=== PATIENT | female | born 1960 | race African-American/Black ===

== ENCOUNTER 2017-10-05 00:44 | Emergency (ER) | payer OTHER ==
[2017-10-05 02:00] VITALS: BMI 29.8
--- NOTE | 2017-10-05 02:02 | PDOC ---
History of Present Illness <Scarlett Espinosa - Last Filed: 10/05/17 03:03> - General History Source: Patient Exam Limitations: No Limitations - History of Present Illness Initial Comments: 10/05/17 05:24 Patient is a 57 year old female with a significant past medical history of Diabetes (uncontrollable), who presents to the ED with complaints of right upper quadrant pain that began 1 week ago. Patient reports having flu 2 weeks ago and states she is currently getting over it. She reports experiencing achy chest pain secondary to cough as well as intermittent shortness of breath with deep inspirations. She reports experiencing multiple episodes of vomiting and diarrhea for the last week, stating both the vomit and the diarrhea look like green bile, which prompted her to come into the ED. She reports being unable to eat solid food and drink liquids due to vomiting, stating she can only drink soup very slowly as to not trigger another vomiting episode. Denies contact with sick individuals, out of state travel. Denies dysuria, hematuria, constipation. Denies any other symptoms. Allergies: None Social history: Lives with . No smoking. No alcohol. No illicit drugs. Surgical history: Toe Amputation. . PMD: Dr. Jean Carlos giraldo <Cedric Garcia - Last Filed: 10/05/17 05:24> <Alisha Machuca - Last Filed: 10/05/17 08:26> - General Chief Complaint: Vomiting/Diarrhea Stated Complaint: VOMITING,DIARRHEA Time Seen by Provider: 10/05/17 02:02 Past History - Past Medical History COPD: No Diabetes: Yes (1) HTN: Yes - Suicide/Smoking/Psychosocial Hx Smoking History: Unknown if ever smoked Information on smoking cessation initiated: No <Scarlett Espinosa - Last Filed: 10/05/17 03:03> <Cedric Garcia - Last Filed: 10/05/17 05:24> <Alisha Machuca - Last Filed: 10/05/17 08:26> - Past Medical History Allergies/Adverse Reactions: Allergies Allergy/AdvReac Type Severity Reaction Status Date / Time No Known Allergies Allergy Verified 10/05/17 01:57 Home Medications: Ambulatory Orders Insulin (Levemir) [Levemir Vial] 24 unit SQ DAILY 10/05/17 Insulin Lispro [Humalog] unit SQ ASDIR 10/05/17 Review of Systems - Review of Systems Able to Perform ROS?: Yes Comments:: 10/05/17 05:24 GENERAL/CONSTITUTIONAL: No fever or chills. No weakness. HEAD, EYES, EARS, NOSE AND THROAT: No change in vision. No ear pain or discharge. No sore throat. GASTROINTESTINAL: +Nausea. +Vomiting. +Diarrhea. No constipation. GENITOURINARY: No dysuria, frequency, or change in urination. CARDIOVASCULAR: No chest pain or shortness of breath. RESPIRATORY: +Sob with deep inhalation. No cough, wheezing, or hemoptysis. MUSCULOSKELETAL: No joint or muscle swelling or pain. No neck or back pain. SKIN: No rash NEUROLOGIC: No headache, vertigo, loss of consciousness, or change in strength/ sensation. ENDOCRINE: No increased thirst. No abnormal weight change. HEMATOLOGIC/LYMPHATIC: No anemia, easy bleeding, or history of blood clots. ALLERGIC/IMMUNOLOGIC: No hives or skin allergy. All Other Systems: Reviewed and Negative <Cedric Garcia - Last Filed: 10/05/17 05:24> *Physical Exam - Vital Signs Last Vital Signs Temp Pulse Resp BP Pulse Ox 99.2 F 92 H 20 124/104 98 10/05/17 01:59 10/05/17 01:59 10/05/17 01:59 10/05/17 01:59 10/05/17 01:59 <Scarlett Espinosa - Last Filed: 10/05/17 03:03> - Vital Signs Last Vital Signs Temp Pulse Resp BP Pulse Ox 99.2 F 92 H 20 124/104 98 10/05/17 01:59 10/05/17 01:59 10/05/17 01:59 10/05/17 01:59 10/05/17 01:59 - Physical Exam Comments: 10/05/17 05:25 GENERAL: Awake, alert, and fully oriented, in no acute distress HEAD: No signs of trauma EYES: PERRLA, EOMI, sclera anicteric, conjunctiva clear ENT: +Nasal congestion. Auricles normal inspection, hearing grossly normal, nares patent, oropharynx clear without exudates. Moist mucosa NECK: Normal ROM, supple, no lymphadenopathy, JVD, or masses LUNGS: Breath sounds equal, clear to auscultation bilaterally. No wheezes, and no crackles HEART: +Tachycardic at 100. Regular rhythm, normal S1 and S2, no murmurs, rubs or gallops ABDOMEN: +Tenderness with voluntary guarding in RUQ Soft, normoactive bowel sounds. No rebound. No masses MUSCULOSKELETAL: +cva tenderness on the right side. EXTREMITIES: Normal range of motion, no edema. No clubbing or cyanosis. No cords, erythema, or tenderness NEUROLOGICAL: Cranial nerves II through XII grossly intact. Normal speech, normal gait SKIN: No skin changes, Warm, Dry, normal turgor, no rashes or lesions noted. <Cedric Garcia - Last Filed: 10/05/17 05:24> - Vital Signs Last Vital Signs Temp Pulse Resp BP Pulse Ox 97.9 F 76 16 114/79 97 10/05/17 06:56 10/05/17 06:56 10/05/17 06:56 10/05/17 06:56 10/05/17 06:56 <Alisha Machuca - Last Filed: 10/05/17 08:26> ED Treatment Course - LABORATORY CBC & Chemistry Diagram: 10/05/17 03:00 10/05/17 03:00 - ADDITIONAL ORDERS Additional order review: Laboratory Results 10/05/17 10/05/17 10/05/17 03:00 03:00 03:00 PT with INR 11.40 INR 1.01 PTT (Actin FS) 37.9 H Sodium 138 Potassium 3.4 L Chloride 96 L Carbon Dioxide 31 Anion Gap 11 BUN 22 H Creatinine 1.0 Creat Clearance w eGFR 57.15 Random Glucose 361 H* Calcium 10.0 Total Bilirubin 0.4 AST 9 L ALT 16 Alkaline Phosphatase 86 Creatine Kinase 80 Troponin I < 0.02 Total Protein 7.7 Albumin 3.5 Lipase 117 Beta HCG, Quant 2.7 Blood Type O POSITIVE Antibody Screen Negative 10/05/17 03:00 RBC 5.34 H MCV 82.3 MCHC 32.6 RDW 14.7 MPV 8.8 Neutrophils % 69.6 Lymphocytes % 22.0 Monocytes % 6.4 Eosinophils % 1.5 Basophils % 0.5 - Medications Given in the ED: ED Medications Discontinued Medications Generic Name Dose Route Start Last Admin Trade Name Freq PRN Reason Stop Dose Admin Acetaminophen 1,000 mg 10/05/17 03:57 10/05/17 04:46 Tylenol - PO 10/05/17 03:58 1,000 mg ONCE ONE Administration Al Hydroxide/Mg Hydroxide 30 ml 10/05/17 03:16 10/05/17 04:46 Mylanta Oral Suspension - PO 10/05/17 03:17 Not Given ONCE ONE Sodium Chloride 1,000 mls @ 1,000 mls/hr 10/05/17 03:15 10/05/17 03:17 Normal Saline - IV 10/05/17 04:14 1,000 mls/hr ASDIR STA Administration Famotidine 20 mg in 12 mls @ 144 mls/hr 10/05/17 03:17 10/05/17 03:18 Pepcid 20 Mg/12 Ml Push IVPUSH 10/05/17 03:21 144 mls/hr BID ONE Administration <Cedric Garcia - Last Filed: 10/05/17 05:24> - LABORATORY CBC & Chemistry Diagram: 10/05/17 03:00 10/05/17 03:00 - ADDITIONAL ORDERS Additional order review: Laboratory Results 10/05/17 10/05/17 10/05/17 06:10 03:00 03:00 PT with INR INR PTT (Actin FS) Sodium 138 Potassium 3.4 L Chloride 96 L Carbon Dioxide 31 Anion Gap 11 BUN 22 H Creatinine 1.0 Creat Clearance w eGFR 57.15 Random Glucose 361 H* Calcium 10.0 Total Bilirubin 0.4 AST 9 L ALT 16 Alkaline Phosphatase 86 Creatine Kinase 80 Troponin I < 0.02 Total Protein 7.7 Albumin 3.5 Lipase 117 Beta HCG, Quant 2.7 Urine Color Ltyellow Urine Appearance Clear Urine pH 5.0 Ur Specific [place] 1.022 Urine Protein Negative Urine Glucose (UA) 3+ H Urine Ketones Trace H Urine Blood Negative Urine Nitrite Negative Urine Bilirubin Negative Urine Urobilinogen Negative Ur Leukocyte Esterase Trace Urine WBC (Auto) 3 Urine RBC (Auto) <1 Ur Epithelial Cells Rare Urine Bacteria Rare Hyaline Casts 12 Urine Mucus Rare Blood Type O POSITIVE Antibody Screen Negative 10/05/17 03:00 PT with INR 11.40 INR 1.01 PTT (Actin FS) 37.9 H Sodium Potassium Chloride Carbon Dioxide Anion Gap BUN Creatinine Creat Clearance w eGFR Random Glucose Calcium Total Bilirubin AST ALT Alkaline Phosphatase Creatine Kinase Troponin I Total Protein Albumin Lipase Beta HCG, Quant Urine Color Urine Appearance Urine pH Ur Specific [place] Urine Protein Urine Glucose (UA) Urine Ketones Urine Blood Urine Nitrite Urine Bilirubin Urine Urobilinogen Ur Leukocyte Esterase Urine WBC (Auto) Urine RBC (Auto) Ur Epithelial Cells Urine Bacteria Hyaline Casts Urine Mucus Blood Type Antibody Screen 10/05/17 03:00 RBC 5.34 H MCV 82.3 MCHC 32.6 RDW 14.7 MPV 8.8 Neutrophils % 69.6 Lymphocytes % 22.0 Monocytes % 6.4 Eosinophils % 1.5 Basophils % 0.5 - Medications Given in the ED: ED Medications Discontinued Medications Generic Name Dose Route Start Last Admin Trade Name Freq PRN Reason Stop Dose Admin Acetaminophen 1,000 mg 10/05/17 03:57 10/05/17 04:46 Tylenol - PO 10/05/17 03:58 1,000 mg ONCE ONE Administration Al Hydroxide/Mg Hydroxide 30 ml 10/05/17 03:16 10/05/17 04:46 Mylanta Oral Suspension - PO 10/05/17 03:17 Not Given ONCE ONE Sodium Chloride 1,000 mls @ 1,000 mls/hr 10/05/17 03:15 10/05/17 03:17 Normal Saline - IV 10/05/17 04:14 1,000 mls/hr ASDIR STA Administration Famotidine 20 mg in 12 mls @ 144 mls/hr 10/05/17 03:17 10/05/17 03:18 Pepcid 20 Mg/12 Ml Push IVPUSH 10/05/17 03:21 144 mls/hr BID ONE Administration <Alisha Machuca - Last Filed: 10/05/17 08:26> Medical Decision Making - Medical Decision Making 10/05/17 03:08 Pt with RUQ pain with vol guarding as well as CVAT. + several episodes of bilious vomiting today. Ddx includes cholecysitis, biliary colic, pancreatitis, gastritis, pyelonephritis, renal colic, lower lobe pna. - labs including lipase - CXR - UA/urine cx - CT a/p with PO/IV contrast - pepcid, maalox, IVF <Scarlett Espinosa - Last Filed: 10/05/17 03:03> *DC/Admit/Observation/Transfer <Jesús,Scarlett - Last Filed: 10/05/17 03:03> - Attestations Scribe Attestion: 10/05/17 05:25 Documentation prepared by Cedric Gracia, acting as medical physicist for Scarlett Espinosa DO, MD/. <Cedric Garcia - Last Filed: 10/05/17 05:24> <Alisha Machuca - Last Filed: 10/05/17 08:26> - Referrals Referrals: Jean Carlos Giraldo [Primary Care Provider] - - Patient Instructions - Post Discharge Activity
[2017-10-05] MEDS ORDERED: FAMOTIDINE 20 MG/50 ML IVPB 20 MG/50 ML MG IVPB ONE (03:12)
[2017-10-05] MEDS ORDERED: SODIUM CHLORIDE 1,000 ML IV STA ×2 (03:15→06:42)
[2017-10-05] MEDS ORDERED: MAG HYDROX/AL HYDROX/SIMETH 30 ML UNIT-DOSE CUP PO ONE (03:16)
[2017-10-05] MEDS ORDERED: FAMOTIDINE IV 20 MG/12 ML VIAL IVPUSH ONE (03:17)
[2017-10-05 03:18] LABS: BASO % 0.5 % (0-2.0); EOS % 1.5 % (0-4.5); HEMATOCRIT 43.9 % (32.4-45.2); HEMOGLOBIN 14.3 GM/dL (10.7-15.3); MCH 26.8 pg (25.7-33.7); MCHC 32.6 g/dl (32.0-36.0); MEAN CELL VOLUME 82.3 fl (80-96); MEAN PLT VOLUME 8.8 fl (7.5-11.1); MONO % 6.4 % (3.8-10.2); NEUT % 69.6 % (42.8-82.8); PLATELET COUNT 546 K/MM3 (134-434); RBC 5.34 M/mm3 (3.60-5.2); RDW 14.7 % (11.6-15.6); WHITE BLOOD COUNT 10.9 K/mm3 (4.0-10.0)
[2017-10-05 03:28] LABS: INR 1.01 (0.82-1.09); PROTHROMBIN TIME (PATIENT) 11.4 SEC (9.98-11.88)
[2017-10-05 03:30] LABS: ACTIVATED PTT 37.9 SECONDS (26.9-34.4)
[2017-10-05] MEDS ORDERED: ONDANSETRON 4 MG/2 ML VIAL ONE (03:34)
[2017-10-05 03:38] LABS: ALBUMIN 3.5 g/dl (3.4-5.0); ANION GAP 11 (8-16); BILIRUBIN,TOTAL 0.4 mg/dL (0.2-1.0); BLOOD UREA NITROGEN 22 mg/dL (7-18); CHLORIDE 96 mmol/L (98-107); CO2 31 mmol/L (21-32); LIPASE 117 U/L (73-393); POTASSIUM 3.4 mmol/L (3.5-5.1); SGOT/AST 9 U/L (15-37); SGPT/ALT 16 U/L (12-78); SODIUM 138 mmol/L (136-145); TOT PROT 7.7 g/dl (6.4-8.2)
[2017-10-05 03:41] LABS: ALK PHOS 86 U/L (45-117)
[2017-10-05] MEDS ORDERED: ACETAMINOPHEN 500 MG TABLET (FP) PO ONE (03:57)
[2017-10-05 04:08] LABS: GLUCOSE,RANDOM 361 mg/dL (74-106)
[2017-10-05] MEDS ORDERED: ACETAMINOPHEN 325 MG TABLET (FP) ONE (04:43)
[2017-10-05] MEDS ORDERED: MAG HYDROX/AL HYDROX/SIMETH 30 ML UNIT-DOSE CUP ONE (04:43)
[2017-10-05 06:28] LABS: URINE APPEARANCE CLEAR; URINE BILIRUBIN NEGATIVE (NEGATIVE); URINE BLOOD NEGATIVE (NEGATIVE); URINE COLOR LTYELLOW; URINE GLUCOSE (UA) 3+ (NEGATIVE); URINE KETONE TRACE (NEGATIVE); URINE LEUK ESTERASE TRACE (NEGATIVE); URINE NITRITE NEGATIVE (NEGATIVE); URINE PROTEIN NEGATIVE (NEGATIVE); URINE UROBILINOGEN NEGATIVE mg/dL (0.2-1.0)
[2017-10-05 06:41] LABS: EPI CELLS RARE /HPF (FEW); URINE BACTERIA RARE /hpf (NONE SEEN); URINE HYALINE CAST 12 /lpf; URINE MUCUS RARE
[2017-10-05 06:57] VITALS: TEMP 97.9
--- NOTE | 2017-10-05 07:55 | PDOC ---
*Physical Exam - Vital Signs Last Vital Signs Temp Pulse Resp BP Pulse Ox 97.9 F 76 16 114/79 97 10/05/17 06:56 10/05/17 06:56 10/05/17 06:56 10/05/17 06:56 10/05/17 06:56 <Ashwini Warner - Last Filed: 10/05/17 08:41> - Vital Signs Last Vital Signs Temp Pulse Resp BP Pulse Ox 97.9 F 88 15 131/83 100 10/05/17 06:56 10/05/17 07:49 10/05/17 07:49 10/05/17 07:49 10/05/17 07:49 <Alisha Machuca - Last Filed: 10/05/17 08:58> ED Treatment Course - LABORATORY CBC & Chemistry Diagram: 10/05/17 03:00 10/05/17 03:00 - ADDITIONAL ORDERS Additional order review: Laboratory Results 10/05/17 10/05/17 10/05/17 06:10 03:00 03:00 PT with INR INR PTT (Actin FS) Sodium 138 Potassium 3.4 L Chloride 96 L Carbon Dioxide 31 Anion Gap 11 BUN 22 H Creatinine 1.0 Creat Clearance w eGFR 57.15 Random Glucose 361 H* Calcium 10.0 Total Bilirubin 0.4 AST 9 L ALT 16 Alkaline Phosphatase 86 Creatine Kinase 80 Troponin I < 0.02 Total Protein 7.7 Albumin 3.5 Lipase 117 Beta HCG, Quant 2.7 Urine Color Ltyellow Urine Appearance Clear Urine pH 5.0 Ur Specific [place] 1.022 Urine Protein Negative Urine Glucose (UA) 3+ H Urine Ketones Trace H Urine Blood Negative Urine Nitrite Negative Urine Bilirubin Negative Urine Urobilinogen Negative Ur Leukocyte Esterase Trace Urine WBC (Auto) 3 Urine RBC (Auto) <1 Ur Epithelial Cells Rare Urine Bacteria Rare Hyaline Casts 12 Urine Mucus Rare Blood Type O POSITIVE Antibody Screen Negative 10/05/17 03:00 PT with INR 11.40 INR 1.01 PTT (Actin FS) 37.9 H Sodium Potassium Chloride Carbon Dioxide Anion Gap BUN Creatinine Creat Clearance w eGFR Random Glucose Calcium Total Bilirubin AST ALT Alkaline Phosphatase Creatine Kinase Troponin I Total Protein Albumin Lipase Beta HCG, Quant Urine Color Urine Appearance Urine pH Ur Specific [place] Urine Protein Urine Glucose (UA) Urine Ketones Urine Blood Urine Nitrite Urine Bilirubin Urine Urobilinogen Ur Leukocyte Esterase Urine WBC (Auto) Urine RBC (Auto) Ur Epithelial Cells Urine Bacteria Hyaline Casts Urine Mucus Blood Type Antibody Screen 10/05/17 03:00 RBC 5.34 H MCV 82.3 MCHC 32.6 RDW 14.7 MPV 8.8 Neutrophils % 69.6 Lymphocytes % 22.0 Monocytes % 6.4 Eosinophils % 1.5 Basophils % 0.5 - RADIOLOGY Radiology Studies Ordered: Category Date Time Status CHEST PA & LAT [RAD] Stat Radiology 10/05/17 07:46 Ordered - Medications Given in the ED: ED Medications Discontinued Medications Generic Name Dose Route Start Last Admin Trade Name Freq PRN Reason Stop Dose Admin Acetaminophen 1,000 mg 10/05/17 03:57 10/05/17 04:46 Tylenol - PO 10/05/17 03:58 1,000 mg ONCE ONE Administration Al Hydroxide/Mg Hydroxide 30 ml 10/05/17 03:16 10/05/17 04:46 Mylanta Oral Suspension - PO 10/05/17 03:17 Not Given ONCE ONE Sodium Chloride 1,000 mls @ 1,000 mls/hr 10/05/17 03:15 10/05/17 03:17 Normal Saline - IV 10/05/17 04:14 1,000 mls/hr ASDIR STA Administration Famotidine 20 mg in 12 mls @ 144 mls/hr 10/05/17 03:17 10/05/17 03:18 Pepcid 20 Mg/12 Ml Push IVPUSH 10/05/17 03:21 144 mls/hr BID ONE Administration Sodium Chloride 1,000 mls @ 1,000 mls/hr 10/05/17 06:42 10/05/17 06:35 Normal Saline - IV 10/05/17 07:41 1,000 mls/hr ASDIR STA Administration <Ashwini Warner - Last Filed: 10/05/17 08:41> - LABORATORY CBC & Chemistry Diagram: 10/05/17 03:00 10/05/17 03:00 - ADDITIONAL ORDERS Additional order review: Laboratory Results 10/05/17 10/05/17 10/05/17 06:10 03:00 03:00 PT with INR INR PTT (Actin FS) Sodium 138 Potassium 3.4 L Chloride 96 L Carbon Dioxide 31 Anion Gap 11 BUN 22 H Creatinine 1.0 Creat Clearance w eGFR 57.15 Random Glucose 361 H* Calcium 10.0 Total Bilirubin 0.4 AST 9 L ALT 16 Alkaline Phosphatase 86 Creatine Kinase 80 Troponin I < 0.02 Total Protein 7.7 Albumin 3.5 Lipase 117 Beta HCG, Quant 2.7 Urine Color Ltyellow Urine Appearance Clear Urine pH 5.0 Ur Specific [place] 1.022 Urine Protein Negative Urine Glucose (UA) 3+ H Urine Ketones Trace H Urine Blood Negative Urine Nitrite Negative Urine Bilirubin Negative Urine Urobilinogen Negative Ur Leukocyte Esterase Trace Urine WBC (Auto) 3 Urine RBC (Auto) <1 Ur Epithelial Cells Rare Urine Bacteria Rare Hyaline Casts 12 Urine Mucus Rare Blood Type O POSITIVE Antibody Screen Negative 10/05/17 03:00 PT with INR 11.40 INR 1.01 PTT (Actin FS) 37.9 H Sodium Potassium Chloride Carbon Dioxide Anion Gap BUN Creatinine Creat Clearance w eGFR Random Glucose Calcium Total Bilirubin AST ALT Alkaline Phosphatase Creatine Kinase Troponin I Total Protein Albumin Lipase Beta HCG, Quant Urine Color Urine Appearance Urine pH Ur Specific [place] Urine Protein Urine Glucose (UA) Urine Ketones Urine Blood Urine Nitrite Urine Bilirubin Urine Urobilinogen Ur Leukocyte Esterase Urine WBC (Auto) Urine RBC (Auto) Ur Epithelial Cells Urine Bacteria Hyaline Casts Urine Mucus Blood Type Antibody Screen 10/05/17 03:00 RBC 5.34 H MCV 82.3 MCHC 32.6 RDW 14.7 MPV 8.8 Neutrophils % 69.6 Lymphocytes % 22.0 Monocytes % 6.4 Eosinophils % 1.5 Basophils % 0.5 - RADIOLOGY Radiology Studies Ordered: 10/05/17 07:35 Abdomen/Pelvis CT was reviewed by Dr. Timmy davis over-read by Radiology. Impression: No bowel obstruction, colitis, diverticulitis, free fluid or free air. Normal appendix. Unremarkable pancreas and gallbladder. Small cystic foci right kidney. Hepatomegaly. Small left inguinal region hernia containing fat. - Medications Given in the ED: ED Medications Discontinued Medications Generic Name Dose Route Start Last Admin Trade Name Freq PRN Reason Stop Dose Admin Acetaminophen 1,000 mg 10/05/17 03:57 10/05/17 04:46 Tylenol - PO 10/05/17 03:58 1,000 mg ONCE ONE Administration Al Hydroxide/Mg Hydroxide 30 ml 10/05/17 03:16 10/05/17 04:46 Mylanta Oral Suspension - PO 10/05/17 03:17 Not Given ONCE ONE Sodium Chloride 1,000 mls @ 1,000 mls/hr 10/05/17 03:15 10/05/17 03:17 Normal Saline - IV 10/05/17 04:14 1,000 mls/hr ASDIR STA Administration Famotidine 20 mg in 12 mls @ 144 mls/hr 10/05/17 03:17 10/05/17 03:18 Pepcid 20 Mg/12 Ml Push IVPUSH 10/05/17 03:21 144 mls/hr BID ONE Administration Sodium Chloride 1,000 mls @ 1,000 mls/hr 10/05/17 06:42 10/05/17 06:35 Normal Saline - IV 10/05/17 07:41 1,000 mls/hr ASDIR STA Administration <Alisha Machuca - Last Filed: 10/05/17 08:58> Medical Decision Making - Medical Decision Making 10/05/17 07:47 Ms Abilio parker signed out to me a 7 am Briefly, she is a 57-year-old F who states she has had an upper respiratory infection for the past 1-2 weeks Her symptoms began with fevers Over the past few days, she has had a cough which is non productive She notes right upper abdominal pain Pt has had intermittent vomiting 10/05/17 08:41 At triage, pt noted to have a low grade fever I was signed out to follow up this patients CT Pt CT negative We had a discussion about her results Pt states that she still has right sided pain She thinks this could be related to all the coughing she is doing Will do CXR CXR: no obvious infiltrate Will discharge to home clinical impression: musculoskeletal pain, initial presentation Upper respiratory infection, initial presentation <Ashwini Warner - Last Filed: 10/05/17 08:41> *DC/Admit/Observation/Transfer - Discharge Dispostion Admit: No <Ashwini Warner - Last Filed: 10/05/17 08:41> - Attestations Scribe Attestion: 10/05/17 08:57 Documentation prepared by Alisha Machuca, acting as medical record assistant for Scarlett Espinosa DO. <Alisha Machuca - Last Filed: 10/05/17 08:58> Diagnosis at time of Disposition: Nausea Upper respiratory infection Qualifiers: URI type: unspecified URI Qualified Code(s): J06.9 - Acute upper respiratory infection, unspecified - Discharge Dispostion Disposition: HOME Condition at time of disposition: Stable - Prescriptions Prescriptions: Azithromycin [Zithromax 250mg Tablets -] 250 mg PO UTDICT #6 tab Diphenhydramine [Benadryl -] 50 mg PO Q8H PRN #30 capsule PRN Reason: itching Ondansetron HCl [Zofran] 4 mg PO BID PRN #30 tablet PRN Reason: Nausea - Referrals Referrals: Jean Carlos Giraldo [Primary Care Provider] - - Patient Instructions Printed Discharge Instructions: DI for Viral Upper Respiratory Infection -- Adult, DI for Nausea -- Adult Additional Instructions: Ms Knox Thanks for coming in to the ER today Please take medications as prescribed Please stay hydrated Please take Aleeve OR Ibuprofen for pain/fever Please return to the ER for any other concerns or complaints Please follow up with your primary care physician within 1 week - Post Discharge Activity
[2017-10-05 09:06] VITALS: BP 128/65; PULSE 79
[2017-10-05] MEDS ORDERED: FAMOTIDINE IV 20 MG/12 ML VIAL IVPUSH SCH (10:00)
--- NOTE | 2017-10-07 07:52 | PDOC ---
Patient Follow-up (Call Back) - Post ED Follow - Up Condition at time of discharge: Stable Disposition at time of original discharge: HOME Reason for Call Back: Abnwl. Microbiology (Urine preliminary shows presumptive MSSA greater than 100,000 CFU per milliliter. Patient called at [phone] and left message to call back)
--- NOTE | 2017-10-08 07:37 | PDOC ---
Patient Follow-up (Call Back) - Post ED Follow - Up Condition at time of discharge: Stable Disposition at time of original discharge: HOME Reason for Call Back: Abnwl. Microbiology (Patient urine culture final report shows staph aureus over 100,000 CFU per mL . Patient is a diabetic. Patient called at home and states does get frequent urinary tract infections. Patient recommended to follow up with her PCP and/or urologist. In the meanwhile patient was also placed on Bactrim for adequate coverage of staph aureus and MRSA. Patient will go to [facility] today)
== END 2017-10-05 09:12 | disposition home or self-care (01) ==
LOC: JER 00:44
PROC: 3E0337Z Introduction of Electrolytic and Water Balance Substance into Peripheral Vein, Percutaneous Approach (ICD-10-PCS; principal; 2017-10-05)
PROC: 3E033GC Introduction of Other Therapeutic Substance into Peripheral Vein, Percutaneous Approach (ICD-10-PCS; 2017-10-05)
DX: J06.9 Acute upper respiratory infection, unspecified (principal); R11.0 Nausea; E10.65 Type 1 diabetes mellitus with hyperglycemia; Z79.4 Long term (current) use of insulin; I10 Essential (primary) hypertension
CPT/HCPCS: 36415; 71046-TC-FY; 74177-TC; 80053; 81003; 81015; 82550; 83690; 84484; 84702; 85025; 85610; 85730; 86850; 86900; 86901; 87086; 87186; 99284-25

== ENCOUNTER 2018-05-09 12:25 | Emergency (ER) | payer OTHER ==
[2018-05-09 12:31] VITALS: BP 136/81; PULSE 96; TEMP 98.6; BMI 34.5
--- NOTE | 2018-05-09 13:38 | PDOC ---
*Physical Exam - Vital Signs Last Vital Signs Temp Pulse Resp BP Pulse Ox 98.6 F 96 H 18 136/81 98 05/09/18 12:27 05/09/18 12:27 05/09/18 12:27 05/09/18 12:27 05/09/18 12:27 ED Treatment Course - LABORATORY CBC & Chemistry Diagram: 05/09/18 15:19 05/09/18 15:19 Medical Decision Making - Medical Decision Making 05/09/18 13:37 Pt seen by Midlevel Provider under my direct supervision Pt interviewed and examined Ancillary studies - Labs reviewed CT still pending Signed out to Dr Villavicencio I agree with plan as outlined by Midlevel Provider *DC/Admit/Observation/Transfer Diagnosis at time of Disposition: Mucoid diarrhea - Discharge Dispostion Disposition: HOME Condition at time of disposition: Stable - Referrals Referrals: Markell Fowler MD [Staff Physician] - Natasha Hendrix MD [Staff Physician] - Jean Carlos Giraldo [Primary Care Provider] - - Patient Instructions Printed Discharge Instructions: DI for Diarrhea and Traveler's Diarrhea -- Adult Additional Instructions: You have mucous-like diarrhea. Your CT scan today was negative for diverticulitis. Your blood work was normal with the exception of your elevated sugar. Please a bland diet to help reduce her symptoms. Avoid dairy products. Please follow up with a automotive collision repair instructor this week. A referral has been provided for you. Return to the emergency department if you have worsening abdominal pain, fevers , vomiting, rectal bleeding, or if you have any changes in your symptoms. - Post Discharge Activity Forms/Work/School Notes: Back to Work
--- NOTE | 2018-05-09 14:11 | PDOC ---
History of Present Illness - General Chief Complaint: Rectal Bleed Stated Complaint: PCP SENT Time Seen by Provider: 05/09/18 13:36 Past History - Past Medical History Allergies/Adverse Reactions: Allergies Allergy/AdvReac Type Severity Reaction Status Date / Time No Known Allergies Allergy Verified 05/09/18 12:27 Home Medications: Ambulatory Orders Azithromycin [Zithromax 250mg Tablets -] 250 mg PO UTDICT #6 tab 10/05/17 Diphenhydramine [Benadryl -] 50 mg PO Q8H PRN #30 capsule 10/05/17 Insulin (Levemir) [Levemir Vial] 24 unit SQ DAILY 10/05/17 Insulin Lispro [Humalog] unit SQ ASDIR 10/05/17 Ondansetron HCl [Zofran] 4 mg PO BID PRN #30 tablet 10/05/17 Sulfamethoxazole/Trimethoprim [Bactrim Ds -] 1 tab PO BID #14 tablet 10/08/17 COPD: No Diabetes: Yes (1) HTN: Yes - Suicide/Smoking/Psychosocial Hx Smoking History: Never smoked *Physical Exam - Vital Signs Last Vital Signs Temp Pulse Resp BP Pulse Ox 98.6 F 96 H 18 136/81 98 05/09/18 12:27 05/09/18 12:27 05/09/18 12:27 05/09/18 12:27 05/09/18 12:27 ED Treatment Course - LABORATORY CBC & Chemistry Diagram: 05/09/18 15:19 05/09/18 15:19 *DC/Admit/Observation/Transfer Diagnosis at time of Disposition: Mucoid diarrhea - Discharge Dispostion Disposition: HOME Condition at time of disposition: Stable Decision to Admit order: No - Referrals Referrals: Jean Carlos Giraldo [Primary Care Provider] - Natasha Hendrix MD [Staff Physician] - Markell Fowler MD [Staff Physician] - - Patient Instructions Printed Discharge Instructions: DI for Diarrhea and Traveler's Diarrhea -- Adult Additional Instructions: You have mucous-like diarrhea. Your CT scan today was negative for diverticulitis. Your blood work was normal with the exception of your elevated sugar. Please a bland diet to help reduce her symptoms. Avoid dairy products. Please follow up with a overnight stocker this week. A referral has been provided for you. Return to the emergency department if you have worsening abdominal pain, fevers , vomiting, rectal bleeding, or if you have any changes in your symptoms. - Post Discharge Activity Forms/Work/School Notes: Back to Work
[2018-05-09 15:41] LABS: BASO % 0.6 % (0-2.0); EOS % 2.3 % (0-4.5); HEMATOCRIT 40.4 % (32.4-45.2); HEMOGLOBIN 13.1 GM/dL (10.7-15.3); LYMPH % 33.5 % (8-40); MCH 27.6 pg (25.7-33.7); MCHC 32.5 g/dl (32.0-36.0); MEAN CELL VOLUME 84.7 fl (80-96); MEAN PLT VOLUME 9.2 fl (7.5-11.1); NEUT % 54.6 % (42.8-82.8); PLATELET COUNT 508 K/MM3 (134-434); RBC 4.77 M/mm3 (3.60-5.2); RDW 14.7 % (11.6-15.6); WHITE BLOOD COUNT 7.1 K/mm3 (4.0-10.0)
[2018-05-09 15:55] LABS: INR 0.95 (0.83-1.09); PROTHROMBIN TIME (PATIENT) 10.7 SEC (9.7-13.0)
[2018-05-09 16:17] LABS: ALBUMIN 3.8 g/dl (3.4-5.0); ALK PHOS 84 U/L (45-117); ANION GAP 10 MMOL/L (8-16); BILIRUBIN,TOTAL 0.8 mg/dL (0.2-1); BLOOD UREA NITROGEN 33 mg/dL (7-18); CHLORIDE 99 mmol/L (98-107); CO2 24 mmol/L (21-32); CREATININE 1.3 mg/dL (0.55-1.3); POTASSIUM 4.3 mmol/L (3.5-5.1); SGOT/AST 12 U/L (15-37); SGPT/ALT 20 U/L (13-61); SODIUM 132 mmol/L (136-145); TOT PROT 7.4 g/dl (6.4-8.2)
[2018-05-09 16:19] LABS: GLUCOSE,RANDOM 486 mg/dL (74-106)
[2018-05-09 16:28] LABS: URINE APPEARANCE CLEAR; URINE BILIRUBIN NEGATIVE (<2.0 mg/dL); URINE COLOR STRAW; URINE GLUCOSE (UA) 3+ (NEGATIVE); URINE KETONE NEGATIVE (NEGATIVE); URINE LEUK ESTERASE NEGATIVE (NEGATIVE); URINE NITRITE NEGATIVE (NEGATIVE); URINE PROTEIN NEGATIVE (NEGATIVE); URINE UROBILINOGEN NEGATIVE mg/dL (0.2-1.0)
[2018-05-09] MEDS: INSULIN REGULAR HUMAN 100 UNITS/ML *VIAL SQ ONE ×2 (18:59→19:09)
[2018-05-09] MEDS ORDERED: INSULIN REGULAR HUMAN 100 UNITS/ML *VIAL ONE (19:02)
== END 2018-05-09 19:09 | disposition home or self-care (01) ==
LOC: JER 12:25
DX: K52.9 Noninfective gastroenteritis and colitis, unspecified (principal); I10 Essential (primary) hypertension; E11.9 Type 2 diabetes mellitus without complications; Z79.4 Long term (current) use of insulin
CPT/HCPCS: 36415; 74177-TC; 80053; 81003; 82272; 85025; 85610; 87086; 87186; 99283-25